=== PATIENT | female | born 1960 | race Caucasian/White ===

== ENCOUNTER → 2017-08-02 11:28 | Outpatient (CLI) | payer BC | END | disposition home or self-care (01) | LOC: D.RAD 11:28 | DX: M25.562 Pain in left knee (principal) ==

== ENCOUNTER → 2019-12-31 10:03 | Outpatient (CLI) | payer BC | END | disposition home or self-care (01) | LOC: D.HCCARDIO 10:03 | PROVIDERS: ATTEND Internal Medicine Cardiovascular Disease | DX: I20.9 Angina pectoris, unspecified (principal) ==

== ENCOUNTER 2020-01-18 11:07 | Outpatient (CLI) | payer BC ==
[~2020-01-18] VITALS: Ht 162.6 cm; Wt 70.4 kg
--- NOTE | ~2020-01-18 | HEMODYNAMI ---
PATIENT:NAKITA BIGGS MEDICAL RECORD: [id number] : 56 LOCATION:[facility] ADMISSION DATE: 01/18/20 Generatedon:01/18/202013:39 Patient name: NAKITA BIGGS Patient #: [id number] SSN: DO B: 1960 Date of study: 01/18/2020 Page: Of Hemodynamic Procedure Report Patient Data Patient Demographics Procedure consent was obtained First Name: NAKITA Gender: Female Last Name: DIAN : 1960 Middle Initial: ORLY Age: 59 year(s) Patient #: [id number] Race: Unknown Additional ID: [id number] Contact details [address]: [address] [place] [address] State: [place] City: [place] Zip code: [address] Past Medical History Allergies: No known allergies Admission Admission Data Admission Date: 01/18/2020 Admission Time: 11:07 Procedure Procedure Types Cath Procedure Diagnostic Procedure LHC LHC w/Coronaries Sedation Charges Moderate Sedation up to 15 minutes PCI Procedure Coronary Stent Coronary Stent Initial Procedure Description Procedure Date Procedure Date: 01/18/2020 Procedure Start Time: 13:12 Procedure End Time: 13:36 Procedure Staff Name Function Sergio Rodríguez MD Performing Physician Jud Mohamud RT Monitor Estefany John RT Scrub Eileen Hair RN Nurse Procedure Data Cath Procedure Fluoroscopy Diagnostic fluoroscopy Total fluoroscopy Time: 5.3 time: 5.3 min min Diagnostic fluoroscopy Total fluoroscopy dose: 484 dose: 484 mGy mGy Contrast Material Contrast Material Type Amount (ml) Isovue 300 95 Entry Location Entry Primary Successful Side Size Upsize Upsize Entry Closure Cote ccessful Closure Location (Fr) 1 (Fr) 2 (Fr) Remarks Device Remarks Radial Right 6 Fr Mechanical artery Short Compression Estimated blood loss: 10 ml Diagnostic catheters Device Type Used For End Catheter Placement DIAGNOSTIC [place] 110cm 5 Procedure Fr catheter ([id number]) Procedure Complications No complications Procedure Medications Medication Administration Route Dosage 0.9% NaCl I.V. 100 ml/hr Oxygen etCO2 Nasal cannula 2 l/min Lidocaine 2% added to field 20 Heparin Flush Bag added to field 2 bags (1000units/500ml NS) Radial Cocktail added to field 1 syringe (Verapamil 2mg/Nitro 400mcg/Heparin 1500units) Versed I.V. 2 mg Fentanyl I.V. 50 mcg Heparin Bolus I.V. 7000 units Fentanyl I.V. 50 mcg Plavix P.O. 600 mg Hemodynamics Rest Heart Rate: 61 (bpm) Pressure Samples Time Site Value (mmHg) Purpose Heart Use Rate(bpm) 13:15 LV 115/-11,5 Snapshot 69 13:15 LV 108/-12,5 Snapshot 45 Gradients Valve Time Site Site Mean SEP/DFP Peak To Heart Use 1 2 (mmHg) (sec/min) Peak Rate (mmHg) (bpm) Aortic 13:16 LV AO 65 Snapshots Pre Cath Intra NCS Post Cath Vital Signs Time Heart Resp SPO2 etCO2 NIBP (mmHg) Rhythm Pain Sedation Rate (ipm) (%) (mmHg) Status Level (bpm) 12:54:17 61 36 96 37 123/70(88) NSR 0 (11) 10(A) , No pain 12:58:30 66 16 98 33.6 120/70(108) NSR 0 (11) 10(A) , No pain 13:02:38 62 18 97 40.4 119/85(98) NSR 0 (11) 10(A) , No pain 13:06:52 63 10 100 15.7 118/64(85) NSR 0 (11) 10(A) , No pain 13:11:04 69 14 100 38.1 118/70(98) NSR 0 (11) 10(A) , No pain 13:15:14 61 13 100 39.6 89/73(83) NSR 0 (11) 10(A) , No pain 13:19:16 68 11 98 41.8 107/62(83) NSR 0 (11) 10(A) , No pain 13:23:24 68 14 97 41.1 106/67(86) NSR 0 (11) 10(A) , No pain 13:27:32 68 11 99 41.1 103/63(80) NSR 0 (11) 10(A) , No pain 13:31:37 66 10 100 39.6 102/67(79) NSR 0 (11) 10(A) , No pain 13:35:43 73 13 100 35.9 113/65(91) NSR 0 (11) 10(A) , No pain Medications Time Medication Route Dose Verified Delivered Reason Not es Effectiveness by by 12:55:04 0.9% NaCl I.V. 100 Sergio Eileen used for ml/hr Marcos Hair fire and safety helper 12:55:10 Oxygen etCO2 2 l/min Sergio Eileen used for Nasal Marcos Hair procedure cannula RN 12:55:14 Lidocaine 2% added 20ml Sergio Sergio for local to vial Marcos Rodríguez MD anesthetic field 12:55:19 Heparin Flush added 2 bags Sergio Sergio used for Bag to Macros Rodríguez MD procedure (1000units/500ml field NS) 12:55:25 Radial Cocktail added 1 Sergio Sergio used for (Verapamil to syringe Marcos Rodríguez MD procedure 2mg/Nitro field 400mcg/Heparin 1500units) 13:11:39 Versed I.V. 2 mg Sergio Eileen used for Marcos Hair fire and safety helper 13:11:43 Fentanyl I.V. 50 mcg Sergio Eileen for sedation Marcos Hair RN 13:17:46 Fentanyl I.V. 50 mcg Sergio Eileen for sedation Marcos Hair RN 13:25:29 Heparin Bolus I.V. 7000 Sergio Eileen for marin ified units Marcos Hair anticoagulation with Dr. TRANG Rodríguez 13:33:06 Plavix P.O. 600 mg Sergio Eileen for Marcos Hair antiplatelet RN therapy Procedure Log Time Note 12:42:52 Informed consent obtained and on chart 12:43:29 Estefany John RT(R) (CV) sent for patient. Start room use. 12:43:32 Time tracking: Regular hours (M-F 7:00 - 5:00) 12:43:35 Procedure Status Elective Heart Cath (OP). 12:43:44 Plan of Care:Hemodynamics will remain stable., Cardiac rhythm will remain stable., Comfort level will be maintained., Respiratory function will remain adequate., Patient/ family verbilizes understanding of procedure., Procedure tolerated without complication., Recovers from procedure without complications.. 12:46:55 Patient received from Pre/Post Procedure Room to CCL 1 Alert and oriented. Tansferred to table in Supine position. 12:46:57 Warm blankets applied, and noam hugger turned on for patient comfort. 12:46:58 Correct patient and procedure confirmed by team. 12:46:58 ECG and BP/O2 sat monitors applied to patient. 12:51:37 H&P Date Dictated: 12/31/2019 Within 30 days and on chart., H&P Addendum completed by physician on day of procedure. (MUST COMPLETE FOR ALL OUTPATIENTS). 12:51:40 Pre-procedure instructions explained to patient. 12:51:47 Family in patients room. 12:51:52 Patient NPO since Midnight. 12:52:15 Patient allergic to No known allergies 12:52:22 Is the patient allergic to Iodine/contrast media? No. 12:52:24 Was the patient premedicated? Yes 12:52:26 Is patient on blood thinner?No 12:52:28 Patient diabetic? No. 12:52:38 Snore? Yes 12:52:39 Sleep apnea? No 12:52:47 Patient pain scale 0/10 ?. 12:53:00 Lab results completed and on chart. 12:53:06 Right Radial & Right Groin area was prepped with chlora-prep and draped in sterile fashion 12:53:06 Alarms reviewed by R. N. 12:53:07 Sharps counted by scrub and verified by R.N. 12:53:14 Vital chart was started 12:53:23 Baseline sample Acquired. 12:53:27 Rhythm: sinus rhythm 12:53:29 Full Disclosure recording started 12:55:04 0.9% NaCl 100 ml/hr I.V. was administered by Eileen Hair RN; used for procedure; Verbal order read back and verified. 12:55:10 Oxygen 2 l/min etCO2 Nasal cannula was administered by Eileen Hair RN; used for procedure; Verbal order read back and verified. 12:55:14 Lidocaine 2% 20ml vial added to field was administered by Sergio Rodríguez MD; for local anesthetic; Verbal order read back and verified. 12:55:19 Heparin Flush Bag (1000units/500ml NS) 2 bags added to field was administered by Sergio Rodríguez MD; used for procedure; Verbal order read back and verified. 12:55:25 Radial Cocktail (Verapamil 2mg/Nitro 400mcg/Heparin 1500units) 1 syringe added to field was administered by Sergio Rodríguez MD; used for procedure; Verbal order read back and verified. 12:58:07 Deviated septum? No 12:58:08 Opens mouth fully? Yes 12:58:09 Sticks out tongue? Yes 12:58:10 Airway obstruction? No ? 12:58:13 Dentures? No ? 12:58:17 Pre procedure: right dorsailis pedis pulse 1+ Palpable, but thready & weak; easily obliterated 12:58:20 Modified Kevin's test Ulnar < 7 seconds 12:58:59 Stress Test: yes; abnormal ANTERIOR AND APICAL 13:00:39 Use device set Radial Dx or PCI 13:00:40 ACIST Syringe (19785) opened to sterile field. 13:00:41 Bag Decanter (2002S) opened to sterile field. 13:00:41 ACIST Hand Control (62608) opened to sterile field. 13:00:42 ACIST Manifold (96008) opened to sterile field. 13:00:42 Tegaderm 4 x 4 (1626W) opened to sterile field. 13:00:43 Medline Cath Pack ([id number]) opened to sterile field. 13:00:44 MBrace Wrist Support ([id number]) opened to sterile field. 13:00:46 NEEDLE Cook 21G 4cm Radial (P19958) opened to sterile field. 13:00:48 EMERALD Guide Wire (443-498) opened to sterile field. 13:00:50 SHEATH 6FR RAIN (2303159) opened to sterile field. 13:07:08 Physician arrived 13:07:09 --------ALL STOP TIME OUT------ 13:07:10 Final Timeout: patient, procedure, and site verified with staff and physician. All members of the team are in agreement. 13:07:17 Right Radial & Right Groin site verified by team. 13:07:24 Fire Safety Assessment: A--An alcohol-based skin anteseptic being used preoperatively., C--Open oxygen or nitrous oxide is being used., D--An ESU, laser, or fiber-optic light is being used. 13:07:31 Physical assessment completed. ASA score P 2 - A patient with mild systemic disease as per Sergio Rodríguez MD. 13:07:35 2) 60-89 Mildly reduced kidney function, and other findings (as for stage 1) point to kidney disease. 13:07:39 Maximum allowable contrast dose (3.7 X eGFR X 0.75)213 ml. 13:07:44 Sedation plan: IV Moderate Sedation Medication:Versed, Fentanyl 13:09:41 Zero performed for pressure channel P1 13:11:39 Versed 2 mg I.V. was administered by Eileen Hair RN; used for procedure; Verbal order read back and verified. 13:11:43 Fentanyl 50 mcg I.V. was administered by Eileen Hair RN; for sedation; Verbal order read back and verified. 13:11:45 Procedure started. 13:12:04 Local anesthetic to right radial artery with Lidocaine 2% by Sergio Rodríguez MD.INITIAL ACCESS ONLY 13:13:20 A 6 Fr Short sheath was inserted into the Right Radial artery 13:14:44 A DIAGNOSTIC [place] 110cm 5 Fr catheter (264069) was advanced over the wire and used for Procedure. 13:14:49 LV angiography performed. 13:14:54 Zero performed for pressure channel P1 13:15:44 LV gram done using MEDEL 13:16:19 EF : 55 % 13:16:35 LCA angiography performed. 13:17:46 Fentanyl 50 mcg I.V. was administered by Eileen Hair RN; for sedation; Verbal order read back and verified. 13:19:16 RCA angiography performed. 13:21:30 Catheter removed. 13:21:46 Pre PCI Site: [place] mLAD has 80% stenosis. 13:22:00 6 Fr xblad3.5 guide catheter was inserted over the wire 13:23:19 BMW 300cm [place] 2 J wire ([id number]) opened to sterile field. 13:23:20 TUBING High Pressure Extension Tubing (Marcos) ([id number]) opened to sterile field. 13:23:21 GUIDE 6FR XBLAD 3.5 catheter (07378974) opened to sterile field. 13:23:22 INFLATOR Merit BasixCompak (CP5244) opened to sterile field. 13:25:29 Heparin Bolus 7000 units I.V. was administered by Eileen Reginaldo RN; for anticoagulation; verified with Dr. Rodríguez Verbal order read back and verified. 13:26:16 bmw wire advanced. 13:28:39 Wire advanced across lesion. 13:31:51 Place stent Inflation Number: 1 A SUZANNA OTW 3.0 x 12 stent ([id number]) was prepped and advanced across the Mid LAD 80. The stent was deployed at 11 BIB for 0:21 (min:sec) 0. 13:32:27 TR BAND Standard ([id number]) opened to sterile field. 13:32:33 Stent balloon re-inserted over wire. 13:32:48 Sheath removed intact; hemostasis achieved with Mechanical Compression to the Right Radial artery. 13:32:53 Procedure ended.(Physican Out) 13:33:06 Plavix 600 mg P.O. was administered by Eileen Hair RN; for antiplatelet therapy; Verbal order read back and verified. 13:33:56 Fluoroscopy time 05.30 minutes. 13:34:01 Fluoroscopy dose: 484 mGy 13:34:01 Flurop Dose total: 484 13:34:07 Dose Area Product 45450 mGy/cm. 13:34:11 Contrast amount:Isovue 300 95ml. 13:34:13 Maximum allowable dose exceeded? No. 13:34:14 Sharps counted by scrub and verified by R.N. 13:34:16 Insertion/operative site no bleeding no hematoma. 13:34:22 Post-procedure physical assessment completed. ASA score P 3 - A patient with severe systemic disease as per Sergio Rodríguez MD. 13:34:25 Post procedure rhythm: sinus rhythm 13:34:28 Estimated blood loss: 10 ml 13:34:30 Post procedure instruction explained to patient.Patient verbalizes understanding. 13:35:26 Procedure type changed to Cath procedure, Diagnostic procedure, LHC, [facility] w/Coronaries, Sedation Charges, Moderate Sedation up to 15 minutes, PCI procedure, Coronary Stent, Coronary Stent Initial 13:35:36 Procedure and supply charges have been captured, reviewed, submitted and are correct. 13:35:50 Procedure Complication : No complications 13:35:53 Vital chart was stopped 13:35:58 [facility] Findings: MVD- PCI performed (see procedure note) 13:36:01 See physician's report for complete and final results. 13:36:03 Report given to Pre/Post Procedure Room. 13:36:06 Patient transfered to Pre/Post Procedure Room with Stretcher. 13:36:08 Procedure ended. 13:36:08 Full Disclosure recording stopped 13:36:40 ACT drawn and resulted at >400- out of range seconds. (normal therapeutic range 180-240 seconds). 13:36:52 ACC-PCI Only Patient was given prescriptions, or instructed by Sergio Rodríguez MD to start/continue the following medications upon discharge: Plavix 13:36:54 End room use (Document Last) Intervention Summary Intervention Notes Time ActionType Lesion and Equipment Action# Pressure Duration Attributes Used 13:31:51 Place stent Mid LAD SUZANNA OTW 3.0 1 11 00:21 x 12 stent ([id number]) Device Usage Item Name Manufacture Quantity Catalog Hospital Part Current Mini mal Lot# / Number Charge Number Stock Stock Serial# Code ACIST Syringe Acist 1 24260 384959 582801 [id number] 20 (97002) Medical Systems Inc Bag Decanter Microtek 1 2001S 160651 98031 688816 5 (2001S) Medical Inc. ACIST Hand Acist 1 17671 164687 434929 477810 5 Control Medical (98570) Systems Inc ACIST Acist 1 64696 000308 642773 215779 5 Manifold Medical (69302) Systems Inc Tegaderm 4 x 3M 1 1626W 269052 015721 066544 5 4 (1626W) Medline Cath Medline 1 [id number] 160829 77700 316232 5 Pack ([id number]) MBrace Wrist Advanced 1 140-0250-00 431544 26203 471602 5 Support Vascular (476764149) Dynamics NEEDLE Tely Labs Medical 1 R01806 515280 521185 513435 5 21G 4cm Radial (X79514) EMERALD Guide Cardinal 1 502-455 089178 588346 079790 5 Wire Health (515-455) SHEATH 6FR Cardinal 1 3921083 640015 9965270 324470 5 [facility] UserMojo (2947798) DIAGNOSTIC Terumo 1 40-8132 302817 637416 130732 5 [place] 110cm 5 Fr catheter (289354) BMW 300cm Vivas 1 [id number] 944317 032344 186453 5 [place] 2 J Vascular wire (7274083D) TUBING High Merit 1 [id number] 677323 77981 451390 10 Pressure Medical Extension Tubing (Marcos) ([id number]) GUIDE 6FR Cardinal 1 [id number] 887727 973038 970875 10 XBLAD 3.5 Health catheter (46673264) INFLATOR Merit 1 DK0302 984627 136792 039970 15 Merit Medical BasixCompak (PA7585) SUZANNA OTW 3.0 Medtronic 1 [id number] 703372 3179185 241544 5 [id number] x 12 stent ([id number]) TR BAND Terumo 1 [id number] 816188 123192 984130 40 Standard ([id number]) Signature Audit [place] Stage Time Signature Unsigned Intra-Procedure 01/18/2020 Jud Mohamud 1:38:55 PM RT(R) Intra-Procedure 01/18/2020 Eileen Hair 1:39:14 PM RN Intra-Procedure 01/18/2020 Sergio Rodríguez MD 1:39:39 PM [place] [address] [place] [address]
[2020-01-18] MEDS ORDERED: LEVOTHYROXINE100 MCG PO (11:35)
[2020-01-18 11:48] VITALS: BP 118/71; Ht 162.6 cm; Wt 70.4 kg
[2020-01-18 12:00] LABS: BASOPHILS 0.3 % (0-2); EOSINOPHILS 2.3 % (0-7); HEMATOCRIT 40.9 % (36.0-48.0); HEMOGLOBIN 13.3 g/dL (12-16); IMMATURE GRANULOCYTES 0.2 % (0-5); LYMPHOCYTES 35.8 % (15-50); MCHC 32.5 g/dL (31.0-37.0); MCV 95.3 fL (80.0-100.0); MEAN PLATELET VOLUME 9.6 fL (7.4-10.4); MONOCYTES 6.7 % (2-11); NEUTROPHILS 54.7 % (40-80); PLATELET COUNT 237 10x3/uL (130-400); RBC 4.29 10x6/uL (4.00-5.40); RDW 13.3 % (11.5-14.5); WBC 6.5 10x3/uL (4.8-10.8)
[2020-01-18 12:08] LABS: ALT (SGPT) 22 U/L (10-68); CALC OSMOLALITY 278 mosm/kg (275-300); CALCIUM 8.6 mg/dL (8.5-10.1); CARBON DIOXIDE 29.6 mmol/L (21.0-32.0); CHLORIDE - SERUM 105 mmol/L (98-107); CHOL - HDL RATIO 3.1 ratio (2.3-4.1); CHOLESTEROL, TOTAL 236 mg/dL (0-200); CREATININE - SERUM 0.8 mg/dL (0.6-1.3); GLUCOSE 89 mg/dL (74-106); HDL CHOLESTEROL 77 mg/dL (32-96); LDL CHOLESTEROL 146 mg/dL (0-100); LDL-HDL RATIO 1.9 ratio (1.5-3.5); POTASSIUM - SERUM 3.8 mmol/L (3.5-5.1); SODIUM 139 mmol/L (136-145); TRIGLYCERIDE 66 mg/dL (30-200); UREA NITROGEN 17 mg/dL (7-18); eGFR NON AFRICAN AMERICAN 77 mL/min (90-120)
--- NOTE | 2020-01-18 13:45 | NUR ---
REC'D TO ROOM 5 VIA STRETCHER FROM MANUFACTURING ENGINEER CHIEF. MONITORS ESTAB. AT BS. SEE PEST CONTROL OPERATOR. ALARMS ON AND C/L IN REACH.
[2020-01-18] MEDS ORDERED: PLAVIX75 MG PO (13:55)
[2020-01-18] MEDS ORDERED: BAYER CHEWABLE81 MG PO (13:55)
[2020-01-18] MEDS ORDERED: PRAVACHOL20 MG PO (13:58)
--- NOTE | 2020-01-18 14:00 | NUR ---
R WRIST SITE C/D/I, NO S/S BLEEDING OR SWELLING. PULSES PALP. PT SITTING UP IN BED, GIVEN COFFEE PER REQUEST, VSS. ALARMS ON.
--- NOTE | 2020-01-18 14:30 | NUR ---
R WRIST SITE C/D/I, NO S/S BLEEDING OR SWELLING. VSS. PT RESTING QUIETLY, AT BS. PT DENIES PAIN OR NEEDS. PULSES PALP. C/L IN REACH.
--- NOTE | 2020-01-18 14:45 | NUR ---
R WRIST SITE C/D/I, NO S/S BLEEDING OR HEMATOMA. PULSES PALP, BRISK CAP REFILL. ALARMS ON AND C/L IN REACH.
--- NOTE | 2020-01-18 15:15 | NUR ---
R WRIST SITE C/D/I, NO S/S BLEEDING OR SWELLING. PULSES PALP. VSS. PT DENIES NEEDS OR PAIN.
--- NOTE | 2020-01-18 15:30 | NUR ---
PT GIVEN SANDWICH TRAY PER REQUEST. VSS. R WRIST SITE C/D/I.
--- NOTE | 2020-01-18 15:45 | NUR ---
DR. MATTHEW AT [facility] FOR THE FEEBLE-MINDED AND HER .
--- NOTE | 2020-01-18 16:00 | NUR ---
R WRIST SITE C/D/I, NO S/S BLEEDING OR SWELLING. VSS. PT ATE ALL OF SANDWICH. DENIES NEEDS.
--- NOTE | 2020-01-18 16:15 | NUR ---
PT VOIDED 300ML CLEAR, YELLOW URINE ON BEDPAN. DONYA-CARE PROVIDED.
--- NOTE | 2020-01-18 16:26 | NUR ---
5 CC AIR REMOVED FROM Z BAND, NO S/S BLEEDING - WILL CONT CLOSE MONITORING. VSS. C/L IN REACH.
--- NOTE | 2020-01-18 16:55 | NUR ---
ALL AIR REMOVED FROM Z BAND PER ORDER, NO S/S BLEEDING OR HEMATOMA. VSS. C/L IN REACH.
--- NOTE | 2020-01-18 17:15 | NUR ---
NO S/S BLEEDING OR HEMATOMA AT WRIST SITE. PIV D/C'D INTACT, DSG APPLIED. PT ALLOWED UP TO GET DRESSED. ASSISTING.
--- NOTE | 2020-01-18 17:22 | NUR ---
ALL DISCHARGE INSTRUCTIONS REVIEWED WITH PT AND HER - TEACHING LITERATURE PROVIDED ON NEW MEDICATIONS AND HEART HEALTHY DIET. Z BAND OFF, DSG AND ARM BOARD APPLIED - NO S/S BLEEDING.
--- NOTE | 2020-01-18 17:28 | NUR ---
PT D/C'D VIA WC TO PRIVATE VEHICLE. PT HAS ALL PAPER WORK AND BELONGINGS.
== END 2020-01-18 17:28 | disposition home or self-care (01) ==
LOC: D.CATH 11:07
PROVIDERS: ATTEND Internal Medicine Cardiovascular Disease
DX: I25.119 Atherosclerotic heart disease of native coronary artery with unspecified angina pectoris (principal); R94.39 Abnormal result of other cardiovascular function study; E07.9 Disorder of thyroid, unspecified

== ENCOUNTER 2020-03-01 15:45 | Observation (INO) | payer BC ==
[~2020-03-01] VITALS: Ht 152.4 cm; Wt 68.2 kg
[~2020-03-01 15:45] MED LIST: BAYER CHEWABLE81 MG PO; LEVOTHYROXINE100 MCG PO; PLAVIX75 MG PO; PRAVACHOL20 MG PO
--- NOTE | 2020-03-01 16:28 | NUR ---
BLOOD TO LAB
[2020-03-01 16:39] VITALS: BP 124/71
[2020-03-01 16:58] LABS: APTT 28.4 SECONDS (22.8-39.4); INR 0.91 (0.85-1.17); PROTIME 12.2 SECONDS (11.6-15.0)
[2020-03-01 16:59] LABS: D-DIMER-QUANTITATIVE 0.31 ug/mLFEU (0.20-0.54)
[2020-03-01 17:04] LABS: BASOPHILS 0.4 % (0-2); CALC OSMOLALITY 265 mosm/kg (275-300); CALCIUM 9.2 mg/dL (8.5-10.1); CARBON DIOXIDE 22.5 mmol/L (21.0-32.0); CHLORIDE - SERUM 99 mmol/L (98-107); CREATININE - SERUM 0.9 mg/dL (0.6-1.3); GLUCOSE 87 mg/dL (74-106); HEMATOCRIT 42.1 % (36.0-48.0); HEMOGLOBIN 14.2 g/dL (12-16); IMMATURE GRANULOCYTES 0.1 % (0-5); LYMPHOCYTES 29.7 % (15-50); MCH 31.5 pg (26.0-34.0); MCHC 33.7 g/dL (31.0-37.0); MCV 93.3 fL (80.0-100.0); MEAN PLATELET VOLUME 9.8 fL (7.4-10.4); MONOCYTES 6.7 % (2-11); NEUTROPHILS 61.1 % (40-80); PLATELET COUNT 251 10x3/uL (130-400); POTASSIUM - SERUM 3.3 mmol/L (3.5-5.1); RBC 4.51 10x6/uL (4.00-5.40); RDW 12.6 % (11.5-14.5); SODIUM 133 mmol/L (136-145); UREA NITROGEN 15 mg/dL (7-18); WBC 8.5 10x3/uL (4.8-10.8); eGFR NON AFRICAN AMERICAN 67 mL/min (90-120)
[2020-03-01 17:19] LABS: ALBUMIN 4.2 g/dL (3.4-5.0); ALKALINE PHOSPHATASE 36 U/L (30-120); ALT (SGPT) 20 U/L (10-68); BILIRUBIN - TOTAL 0.43 mg/dL (0.2-1.3); CKMB 1.5 U/L (0.0-3.6); CREATINE KINASE 130 UL (21-215); MAGNESIUM - SERUM 2.2 mg/dL (1.8-2.4); PROTEIN - SERUM 8.4 g/dL (6.4-8.2); TROPONIN-I < 0.017 ng/mL (0.000-0.060)
[2020-03-01 17:34] VITALS: BP 122/73
[2020-03-01 17:41] VITALS: BP 99/66
--- NOTE | 2020-03-01 17:59 | NUR ---
URINE TO LAB
[2020-03-01 18:26] VITALS: BP 103/62
--- NOTE | 2020-03-01 19:24 | NUR ---
NS 0.9% 50 ML/H INFUSING ON SHIFT CHANGE. 1000 ML REMAINING.
[2020-03-01 19:25] VITALS: BP 107/62
[2020-03-01 20:30] VITALS: BP 111/62
--- NOTE | 2020-03-01 22:50 | NUR ---
IVF NS CONT ON ADMIT
[2020-03-01 23:15] VITALS: Ht 152.4 cm; Wt 68.2 kg
[2020-03-01 23:40] LABS: CREATINE KINASE 108 UL (21-215); TROPONIN-I < 0.017 ng/mL (0.000-0.060)
[2020-03-02 04:00] VITALS: BP 104/58
[2020-03-02 07:01] LABS: BASOPHILS 0.3 % (0-2); EOSINOPHILS 3.4 % (0-7); HEMATOCRIT 38.2 % (36.0-48.0); HEMOGLOBIN 12.7 g/dL (12-16); IMMATURE GRANULOCYTES 0.2 % (0-5); LYMPHOCYTES 38.6 % (15-50); MCH 31.4 pg (26.0-34.0); MCHC 33.2 g/dL (31.0-37.0); MCV 94.3 fL (80.0-100.0); MEAN PLATELET VOLUME 9.9 fL (7.4-10.4); MONOCYTES 9.3 % (2-11); NEUTROPHILS 48.2 % (40-80); PLATELET COUNT 220 10x3/uL (130-400); RBC 4.05 10x6/uL (4.00-5.40)
[2020-03-02 07:04] LABS: WBC 6.1 10x3/uL (4.8-10.8)
[2020-03-02 07:42] LABS: ALBUMIN 3.5 g/dL (3.4-5.0); ALKALINE PHOSPHATASE 27 U/L (30-120); ALT (SGPT) 21 U/L (10-68); BILIRUBIN - TOTAL 0.39 mg/dL (0.2-1.3); CALC OSMOLALITY 286 mosm/kg (275-300); CHLORIDE - SERUM 109 mmol/L (98-107); CKMB 0.4 U/L (0.0-3.6); CREATINE KINASE 81 UL (21-215); CREATININE - SERUM 0.7 mg/dL (0.6-1.3); GLUCOSE 75 mg/dL (74-106); MAGNESIUM - SERUM 2.1 mg/dL (1.8-2.4); PHOSPHOROUS 4.3 mg/dL (2.5-4.9); PROTEIN - SERUM 6.3 g/dL (6.4-8.2); SODIUM 144 mmol/L (136-145); UREA NITROGEN 14 mg/dL (7-18); eGFR NON AFRICAN AMERICAN 90 mL/min (90-120)
[2020-03-02 07:44] LABS: CARBON DIOXIDE 28.6 mmol/L (21.0-32.0); POTASSIUM - SERUM 4.2 mmol/L (3.5-5.1); TROPONIN-I < 0.017 ng/mL (0.000-0.060)
[2020-03-02 08:50] VITALS: BP 106/66
--- NOTE | 2020-03-02 11:11 | NUR ---
PT DISCHARGED HOME VIA WHEELCHAIR WITH FAMILY. PIV REMOVED WITH CATHETER TIP FULLY INTACT. PT SIGNED PROPER DISCHARGE INSTRUCTIONS AND REMOVED ALL VALUABLES FROM THE ROOM. TELEMETRY REMOVED AND RETURNED.
--- NOTE | 2020-03-03 14:25 | CN ---
PATIENT NAME:NAKITA BIGGS MEDICAL RECORD: [id number] : 56 LOCATION:D. D.2120 ADMIT DATE: 03/01/20 ACCOUNT: [id number] CONSULTING PHYSICIAN: LIZ SUMNER MD REFERRING PHYSICIAN: BARBARA CORNEJO MD DATE OF CONSULTATION: 03/02/2020 HISTORY OF PRESENT ILLNESS: A 59-year-old female with history of coronary artery disease, status post stenting via Dr. Rodríguez in end of December, experiencing chest pain, onset today prior to admission with shortness of breath, clearly pleurtic component, worse with inspiration, worse with movement, previously had been feeling well. No progressive symptomatology. We are asked to see her concerning her cardiovascular status. PAST MEDICAL HISTORY: Includes; 1. History of dyslipidemia. 2. Hypertension. 3. Hypothyroidism, on replacement. ALLERGIES: None known. MEDICATIONS: Typically include Plavix 75 every day, pravastatin 20 every day, aspirin 81 mg p.o. every day, Synthroid 100 mcg every day. SOCIAL HISTORY: Nonsmoker, social drinker. Does try to walk on a regular basis. Easily takes care of all his ADLs. REVIEW OF SYSTEMS: The patient reports easy bruising but reports no swollen glands. The patient reports no fever, no night sweats, no significant weight gain, no significant weight loss. No significant exercise tolerance. The patient reports no dry eyes, no irritation, no vision change. Patient reports no difficulty hearing and no ear pain. Patient reports no frequent nose bleeds or nose and sinus problems. Patient reports on arm pain on exertion. No shortness of breath while lying down. No history of heart murmur. Patient reports no cough, no wheezing or coughing up blood. Patient reports no abdominal pain, no vomiting. Normal appetite. No diarrhea and not vomiting blood. No nausea and no constipation. Patient reports no incontinence. No difficulty urinating. No hematuria. No increased frequency. Patient reports no muscle aches. No weakness, no arthralgias, no back pain. No swelling of the extremities. Patient reports no abnormal mole, no jaundice, no rashes. Reports no loss of consciousness. No weakness and no numbness. No seizures, dizziness, or headaches. The patient reports no depression, no sleep disturbance, feeling safe in a relationship and no alcohol abuse. Patient reports on fatigue. Reports no runny nose or sinus pressure. No itching, no hives, and no frequent sneezing. PHYSICAL EXAMINATION: GENERAL: Pleasant, no acute distress, appears stated age. VITAL SIGNS: Blood pressure 106/66, pulse 65 and regular. HEENT: Normocephalic and atraumatic. NECK: No bruits noted. HEART: Regular. No obvious rubs noted. LUNGS: Good air excursion. ABDOMEN: Soft, nontender. EXTREMITIES: Pulses 2+. No edema. CONSULT REPORT [id number] NAKITA BIGGS IMPRESSION AND PLAN: Somewhat atypical pain, clearly pleuritic component. I gave her one dose of steroids. Cardiac enzymes are negative at this point. Check echocardiographic study to make sure no focal wall motion abnormality, particularly along the anterior wall. Depending on symptomatology, okay to discharge from a cardiovascular standpoint. TRANSINT:[id number] Voice Confirmation ID: [id number] DOCUMENT ID: [id number] LIZ SUMNER MD at 1425 CC: [id number] DICTATION DATE: 03/02/20 1140 MIG TIG WELDER: 03/02/20 1647 DIS IN 03/02/20 [place] [id number] [place] [id number]
== END 2020-03-02 11:12 | disposition home or self-care (01) ==
LOC: D.ER 15:45 → D.M2 18:45 → OBSVTIME 18:45 → D.M2 18:45
PROVIDERS: Family Medicine; ADMIT Family Medicine; ATTEND Family Medicine
DX: I25.110 Atherosclerotic heart disease of native coronary artery with unstable angina pectoris (principal); E87.1 Hypo-osmolality and hyponatremia; F10.20 Alcohol dependence, uncomplicated; E78.5 Hyperlipidemia, unspecified; M19.90 Unspecified osteoarthritis, unspecified site